=== PATIENT | male | born 1970 | race Caucasian/White ===

== ENCOUNTER 2017-01-25 12:17 | Emergency (ER) | payer OTHER ==
[~2017-01-25] VITALS: Ht 198.1 cm; Wt 157.7 kg
[2017-01-25 12:49] VITALS: BP 133/83; PULSE 70; O2SAT 94
--- NOTE | 2017-01-25 13:27 | ED.REPORT ---
HPI-Psychiatric Illness Date of Service January 25, 2017 ED Provider: Allan Sanchez MD A 46 male with no history of suicidal ideation or psychiatric admission is brought to the ED by police due to concern of suicidal ideation and need for mental health evaluation. The pt argued with his earlier today and walked out of the house with an energy drink, bourbon, cigarettes, and a gun, causing the pt's to suspect suicidal intent and call the police. The pt denies any suicidal ideation and states that he was "trying to make his miserable" for causing the argument and that he "sold it quite well." The clip of the pt's gun was removed throughout the episode and the gun is now in possession of police. The pt denies alcohol use, stating that he brought the alcohol for effect. Nursing Notes Stated Complaint: PSYCH Chief Complaint: Psychiatric Complaint Nursing Notes Reviewed: Yes ([employer], meds not reconciled) Allergies: Coded Allergies: No Known Allergies (Unverified , 01/25/17) General Time Seen by MD: 13:12 Chief Complaint Other (Psychiatric evaluation) Hx Obtained From: Patient, Police Arrived By: Police Onset Occurred: 1 - 4 hours ago Recent Healthcare: No recent doctor visit, No recent hospitalization Similar Sx Previous: No Risk-Psychiatric Illness Suicide Risk Stratification Suicide Risk Factors - Adult: : Access to firearmsNo: Prior psych admission RF Statements: Risk factors reviewed Past Medical History Past Medical History denies history of suicidal ideation or psychiatric history Past Surgical History left knee surgery Smoking History Current Every Day Smoker, Heavy Tobacco Smoker Social History Other Social History: Ambulatory Status Independent Review of Systems Review of Systems Note: police request for psychiatric evaluation Constitutional: Denies: Fever Respiratory: Denies: Non-productive cough Cardiovascular: Denies: Chest pain GI: Denies: Abdominal pain Skin: Denies Rash Psychiatric: Denies: Suicidal ideation Complete sys rev & neg: except as marked. Physical Exam Initial Vital Signs Vital Signs (First) Date Time Temp Pulse Resp B/P Pulse Ox O2 Delivery O2 Flow Rate FiO2 01/25/17 12:49 70 133/83 94 Room Air 01/25/17 15:08 22 Initial VS: Reviewed, Unavailable (incomplete, ordered) General/Constitutional: Awake, Alert no signs of intoxication Neurologic: Oriented X3, Speech NL, No motor deficits, No sensory deficits Psychiatric: Affect NL, Mood NL, Not suicidal, Not homicidal poor judgement normal insight manipulative Head / Eyes: Atraumatic, Normocephalic, PERRL, EOMI ENT: Atraumatic, Airway patent, Mucous membranes moist Respiratory / Chest: Atraumatic, Breath sounds NL, Breath sounds = bilat, No respiratory distress Cardiovascular: Heart rate NL, Regular rhythm, Heart sounds NL Abdomen: Atraumatic, Soft, Non-tender Skin: Atraumatic, Color NL, No rash, Warm, Dry Neck: Atraumatic, Supple, Full range of motion Back: Atraumatic, Full range of motion Upper Extremity / MS: Atraumatic, Full range of motion Lower Extremity / Pelvis / MS: Atraumatic, Full range of motion Interpretation & Diagnostics Lab Results Interpretation Test 01/25/17 13:10 Hold Urine Received (Received) Lab Results Interpretation: ETOH Negative Toxic screen negative Re-Eval/Medical Decision Med Decision/Clinical Course This is a 46-year-old male brought by police with a concern by the of suicidal ideation. The patient admits that he wanted his to think he was suicidal by grabbing a bottle of alcohol (he states he has does not drink) and a gun and driving off-but he states he has never been suicidal, he is not suicidal now, that he deliberately did discuss he is very angry behavior and her partner racking up some massive multi-thousand dollar bill. he immediately turned things over to the police, who reports he has a firearm. He reports no past history, denies any prior psychiatric history denies any previous suicidal homicidal ideation. The patient's calm and cooperative, chemistries no signs of intoxication or withdrawal. He is consistent with his story to the police, myself, and to the mental health worker. He Has no medical issues identified. He was seen by the MANAGER ADMINISTRATIVE and found to have no findings indicating is at imminent harm to himself or others. He is being discharged. Source of Hx: Old records Consultation : Call Returned at: 17:03 Headend Technician: Agrees with eval, Agrees with plan Note: Spoke with social work lecturer following conversation with pt. deer farm worker recommends discharge. Pt is no danger to himself or others. Counseled Regarding: Diagnosis, Lab results, Need for follow-up, When/why to return to ED Discharge & Departure Impression: Primary Impression: Acute situational disturbance Disposition: Home Discharge Condition All VS Reviewed: Yes Condition: Stable Additional Instructions: 1. Brought here following concerns that you behaviors demonstrated thoughts of suicidal intent and potential self-harm. 2. You have indicated to us that this is not the case, I you have no intention of harming herself or others. You were seen and evaluated by the mental health provider. 3. If you develop also hurting herself or others call the crisis line at 0 return to the emergency department Referrals: Hillary Thomas MD (PCP) [facility] Portions of this note were transcribed by Benedict Hess. I, Dr. Sanchez personally performed the history, physical exam and medical decision-making; I reviewed and confirmed the accuracy of the information in the transcribed note. Signed by: Sumit Taveras, 01/25/2017 and 1715. copies to: Hillary Thomas MD, Matthew F MD January 25, 2017 13:26 BENEDICT HESS January 25, 2017 13:58
[2017-01-25 15:08] VITALS: BP 145/94; PULSE 64; RESP 22; O2SAT 100
[2017-01-25 17:46] VITALS: BP 145/94; PULSE 64; RESP 22; O2SAT 100
== END 2017-01-25 17:48 | disposition home or self-care (01) ==
LOC: SED 12:17
DX: F43.0 Acute stress reaction (principal); F17.200 Nicotine dependence, unspecified, uncomplicated